=== PATIENT | male | born 1980 | race Caucasian/White ===

== ENCOUNTER 2021-10-21 10:59 | Emergency (ER) | payer OTHER, SELFPAY ==
[2021-10-21 11:16] VITALS: BP 141/79; PULSE 84; RESP 16; TEMP 36.9
--- NOTE | 2021-10-21 11:55 | ED.BACK ---
HPI - Back Pain/Injury General Chief Complaint: Back Pain/Injury Stated Complaint: back pain Source: patient and RN notes reviewed Mode of arrival: ambulatory History of Present Illness HPI Narrative: This is a 40-year-old male who presents to urgent care with complaints of low back pain. According to patient it started this morning. Patient notes that when he lies on his back the pain is more intense he also noted that his dog stepped on his abdomen left side and he experienced pain at that time. Patient did not have any pain with palpitation during our assessment on his back nor his abdominal area. Patient describes the pain as constant and deep. Patient denies any hematuria, dysuria, frequency urgency or STDs. Although patient does deny any hematuria there was blood in his UA sample. A culture has been sent off to rule out UTI and patient was instructed to follow-up with his primary care physician for CMP for his kidney function and a PSA for his prostate. The patient denies SOB, CP, palpitation, extremity numbness, lightheadedness, dizziness, constipation, diarrhea, chills, or fever. For now patient will be given Flexeril for muscle spasms Related Data Allergies Allergy/AdvReac Type Severity Reaction Status Date / Time No Known Allergies Allergy Verified 10/21/21 11:24 Review of Systems Review of Systems: A 14 organ system Review of Systems was performed and pertinent positives included in the HPI, otherwise remaining ROS is negative. [facility] Family History Family History (Updated 10/21/21 @ 11:58 by OTF Hernandez) Other Family history non-contributory Exam Narrative: GENERAL: This is a well-nourished, well-developed patient, in no apparent distress. HEAD: normocephalic, atraumatic. EYES: PERRL. Sclera clear/white. Vision is grossly intact. EARS: External ears normal, auditory canals clear and without drainage, TMs normal without perforation. Hearing grossly intact. NOSE: External nose normal with no obvious nasal discharge, nares without redness, no rhinorrhea. THROAT: Mucous membranes moist, posterior pharynx clear. NECK: Neck supple, non-tender without lymphadenopathy, masses or thyromegaly. CARDIOVASCULAR: Regular rate and rhythm without murmurs, gallops, or rubs. RESPIRATORY: Clear to auscultation. Breath sounds equal bilaterally. No wheezes, rales, or rhonchi. GASTROINTESTINAL: Abdomen soft, non-tender, nondistended. Bowel sounds are active. No hepato-splenomegaly, or palpable masses. No guarding. CVA negative SKIN: warm, intact with no suspicious lesions or rash, good texture and turgor. NEURO: awake, alert, and oriented to person, place and time. There were no obvious focal neurologic abnormalities. Steady gait EXTREMITIES: Normal range of motion. No edema. No calf tenderness. Negative Homans sign bilaterally. BACK: Nontender without deformity or crepitance. No flank tenderness. Course Course Emergency Course: Patient is treated for muscle strain or sprain with Flexeril instructed to follow-up with his primary care physician to test his kidney function in prostate due to hematuria in his urine sample. Vital Signs Vital signs: Vital Signs Temperature 98.5 F 10/21/21 11:16 Pulse Rate 84 10/21/21 11:16 Respiratory Rate 16 10/21/21 11:16 Blood Pressure 141/79 H 10/21/21 11:16 Temperature 98.5 F 10/21/21 11:16 Pulse Rate 84 10/21/21 11:16 Respiratory Rate 16 10/21/21 11:16 Blood Pressure 141/79 H 10/21/21 11:16 MDM - Back Pain/Injury Differential Diagnosis Differential diagnosis: Likely strain of lumbar region, pyelonephritis and other (Acute kidney injury prostatitis) Lab Data Labs: Urine Glucose Negative Reference Range: Negative Urine Bilirubin Negative Reference Range: Negative Urine Ketone Negative
== END 2021-10-21 11:56 | disposition home or self-care (01) ==
PROVIDERS: Emergency Provider Nurse Practitioner
DX: R31.9 Hematuria, unspecified (principal); S39.012A Strain of muscle, fascia and tendon of lower back, initial encounter; X58.XXXA Exposure to other specified factors, initial encounter
CPT/HCPCS: 81003; 87086; 99203; G0463